=== PATIENT | female | born 2000 | race Caucasian/White ===

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

== ENCOUNTER 2018-01-15 12:31 | Emergency (ER) | payer OTHER ==
[~2018-01-15] VITALS: Ht 162.6 cm; Wt 68.2 kg
[~2018-01-15 12:31] MED LIST changes: +CEPHALEXIN500 M1 PO
[2018-01-15 12:35] VITALS: TEMP 98
[2018-01-15] MEDS ORDERED: PROAIR HFA0.09 MG/AC IH (12:56)
[2018-01-15] MEDS ORDERED: PREDNISONE20 MG PO (12:56)
[2018-01-15 13:50] VITALS: BP 132/77; PULSE 100
== END 2018-01-15 13:51 | disposition home or self-care (01) ==
LOC: COL.ER 12:31
DX: J45.901 Unspecified asthma with (acute) exacerbation (principal); Z79.51 Long term (current) use of inhaled steroids

== ENCOUNTER 2018-04-02 13:20 | Emergency (ER) | payer OTHER ==
[~2018-04-02] VITALS: Ht 162.6 cm; Wt 68.2 kg
[2018-04-02 13:23] VITALS: TEMP 97.8
[2018-04-02] MEDS ORDERED: PREDNISONE20 MG PO (14:40)
[2018-04-02] MEDS ORDERED: PROAIR HFA0.09 MG/AC IH (14:40)
[2018-04-02] MEDS ORDERED: FLOVENT DI100 MCG/Ac IH (16:57)
[2018-04-02] MEDS ORDERED: ZITHROMAX500 M2 PO (16:57)
[2018-04-02 17:09] VITALS: BP 120/63; PULSE 131
== END 2018-04-02 17:22 | disposition home or self-care (01) ==
LOC: COL.ER 13:20
DX: J45.901 Unspecified asthma with (acute) exacerbation (principal)
CPT/HCPCS: J3105; J7512